=== PATIENT | female | born 1970 | race Caucasian/White ===

== ENCOUNTER 2017-11-13 11:00 | Emergency (ER) | payer BC, MEDICAID, OTHER ==
[2017-11-13 11:07] VITALS: BP 132/72
--- NOTE | 2017-11-13 12:14 | ER Document Report ---
ED Extremity Problem, Lower - General Chief Complaint: Leg Pain Stated Complaint: VEIN IN LEFT LEG IS BLEEDING Time Seen by Provider: 11/13/17 11:50 Mode of Arrival: Ambulatory Information source: Patient Notes: 47-year-old female presented to ED for complaint of bleeding varicose vein in her left ankle. She states she has a small black spot that she hit on something yesterday morning and it started bleeding profusely. She states she had a sock around her ankle and went on to work. She states the bleeding did not stop for a while and when he did she finally took the sock off and then again later last night she hit it on something again and it started bleeding again. She states that during the night she again hit it and it started bleeding and so she was worried this morning and came to the emergency room there was no bleeding at the time she was seen in the emergency room. TRAVEL OUTSIDE OF THE [place] IN LAST 30 DAYS: No - HPI Patient complains to provider of: Other - Bleeding varicose vein Location: Ankle Occurred: Other - Yesterday Onset/Duration: Intermittent Quality of pain: Other - Bleeding from a varicose vein Severity: None Pain Level: Denies Context: Other Recent injury: No - Bleeding from a varicose vein Associated symptoms: Other - Bleeding from a varicose vein Exacerbated by: Nothing Relieved by: Nothing Past Medical History - General Information source: Patient - Social History Smoking Status: Former Smoker Cigarette use (# per day): No Chew tobacco use (# tins/day): No Smoking Education Provided: No Frequency of alcohol use: Social Drug Abuse: None, Other - Former Addict Lives with: Family Family History: Reviewed & Not Pertinent Patient has suicidal ideation: No Patient has homicidal ideation: No - Medical History Medical History: Other - Severe varicose veins - Past Medical History Cardiac Medical History: Reports: None Pulmonary Medical History: Reports: None EENT Medical History: Reports: None Neurological Medical History: Reports: None Endocrine Medical History: Reports: Hx Hypothyroidism Renal/ Medical History: Reports: None Malignancy Medical History: Reports: None GI Medical History: Reports: None Musculoskeltal Medical History: Reports Hx Arthritis, Reports Hx Musculoskeletal Deformity, Reports Hx Musculoskeletal Trauma Skin Medical History: Reports Other - Varicose veins Psychiatric Medical History: Reports: None Traumatic Medical History: Reports: Hx Fractures Infectious Medical History: Reports: None Past Surgical History: Reports: Hx Orthopedic Surgery - Degenerative disc Review of Systems - Review of Systems Constitutional: No symptoms reported EENT: No symptoms reported Cardiovascular: No symptoms reported Respiratory: No symptoms reported Gastrointestinal: No symptoms reported Genitourinary: No symptoms reported Female Genitourinary: No symptoms reported Musculoskeletal: No symptoms reported Skin: No symptoms reported, Other - Varicose veins bilaterally small area on left ankle bleeds yesterday several times no bleeding at this time Hematologic/Lymphatic: No symptoms reported Neurological/Psychological: No symptoms reported Physical Exam - Vital signs Vitals: Temp Pulse Resp BP Pulse Ox 97.6 F 66 16 132/72 H 97 11/13/17 11:06 11/13/17 11:06 11/13/17 11:06 11/13/17 11:06 11/13/17 11:06 Interpretation: Normal - General General appearance: Appears well, Alert - HEENT Head: Normocephalic, Atraumatic Eyes: Normal Pupils: PERRL - Respiratory Respiratory status: No respiratory distress Chest status: Nontender Breath sounds: Normal Chest palpation: Normal - Cardiovascular Rhythm: Regular Heart sounds: Normal auscultation Murmur: No - Abdominal Inspection: Normal Distension: No distension Bowel sounds: Normal Tenderness: Nontender Organomegaly: No organomegaly - Back Back: Normal, Nontender - Extremities General upper extremity: Normal inspection, Nontender, Normal color, Normal ROM , Normal temperature General lower extremity: Nontender, Normal color, Normal ROM, Normal temperature , Normal weight bearing. No: Arnulfo's sign Calf: Other - Varicose veins no bleeding at this time Ankle: Other - Varicose veins no bleeding at this time - Neurological Neuro grossly intact: Yes Cognition: Normal Orientation: AAOx4 [place] Coma Scale Eye Opening: Spontaneous Angelique Coma Scale Verbal: Oriented Angelique Coma Scale Motor: Obeys Commands Angelique Coma Scale Total: 15 Speech: Normal Motor strength normal: LUE, RUE, LLE, RLE Sensory: Normal - Psychological Associated symptoms: Normal affect, Normal mood - Skin Skin Temperature: Warm Skin Moisture: Dry Skin Color: Normal Course - Re-evaluation Re-evalutation: 11/13/17 22:03 Dr. Zain Loomis was consulted. Patient was instructed to call his office and schedule an appointment for Thursday or of next week to have the varicose veins surgically tied off. Patient was instructed, per Dr. Loomis instructions, that in any future bleeding of the varicose vein to stop what she is doing lay on flat on her back raise her leg up rested on a wall until it stops bleeding then lower the leg and apply bandage. Patient verbalized understanding of instructions and agreement with the plan. She was provided with some Coban to apply over a dressing when she did have a bleed until she can see the surgeon to address the varicose veins. - Vital Signs Vital signs: Temp Pulse Resp BP Pulse Ox 97.6 F 66 16 132/72 H 97 11/13/17 11:06 11/13/17 11:06 11/13/17 11:06 11/13/17 11:06 11/13/17 11:06 Discharge - Discharge Clinical Impression: Varicose veins left leg Condition: Stable Disposition: HOME, SELF-CARE Additional Instructions: Varicose Veins You have varicose veins. These are veins that bulge out under the skin. They develop when the valves in the veins fail. These valves normally keep blood moving upstream towards the heart. Without the valves, the pressure of the blood expands and weakens the veins. Varicose veins may simply be unsightly. But often they cause aching pains in the legs, especially after standing. There may be itching and irritation. Occasionally a vein may become clotted, with redness, tenderness, and swelling. Elevate your legs periodically during the day. Support hose can help. Don' t rub or scratch at bulging veins -- this makes them worse. Don't sit with your legs crossed. Avoid standing in one place for more than a few minutes. Walking reduces the pressure in the veins. If varicose veins continue to cause severe symptoms, an operation to remove them ("vein stripping") might help. Call the doctor or return if there is increased swelling, redness, or fever , if there is general leg pain, or if a varicose veins bleeds and won't stop after 15 minutes of direct pressure. If you have any bleeding stop which are doing lift her leg elevated and place it on the wall and it will stop bleeding then you can put a Band-Aid or bandage or whatever you want to on it. First thing you do is stop when she doing lay on your back and elevate the leg. FOLLOW-UP CARE: If you have been referred to a physician for follow-up care, call the physician s office for an appointment as you were instructed or within the next two days. If you experience worsening or a significant change in your symptoms, notify the physician immediately or return to the Emergency Department at any time for re-evaluation. Forms: Elevated Blood Pressure, Return to Work Referrals: JUNIOR LOOMIS MD [ACTIVE STAFF] - Follow up as needed
== END 2017-11-13 12:19 | disposition home or self-care (01) ==
LOC: ER 11:00
DX: I86.8 Varicose veins of other specified sites (principal); Z87.891 Personal history of nicotine dependence
CPT/HCPCS: 99283